=== PATIENT | female | born 1975 | race Caucasian/White ===

== ENCOUNTER 2017-09-03 11:04 | Day surgery (SDC) | payer BC ==
[~2017-09-03] VITALS: Ht 167.6 cm; Wt 82.7 kg
[~2017-09-03 11:04] MED LIST: LEXAPRO10 MG PO; NOLVADEX20 MG PO; STRATTERA80 MG PO; TENORMIN25 MG PO
[2017-09-03 12:01] VITALS: BP 106/69
[2017-09-03 14:40] VITALS: BP 124/78
[2017-09-03 15:19] VITALS: BP 120/70
== END 2017-09-03 15:20 | disposition home or self-care (01) ==
LOC: SDC 11:04
DX: N84.0 Polyp of corpus uteri (principal); D25.9 Leiomyoma of uterus, unspecified; I10 Essential (primary) hypertension; K21.9 Gastro-esophageal reflux disease without esophagitis; Z85.3 Personal history of malignant neoplasm of breast; Z79.810 Long term (current) use of selective estrogen receptor modulators (SERMs)
CPT/HCPCS: 84132; 88305; J0690; J1100; J1885; J2250; J2405; J3010; Q0175